=== PATIENT | male | born 2000 | race Caucasian/White ===

== ENCOUNTER 2022-04-06 22:21 | Emergency (ER) | payer OTHER ==
[~2022-04-06] VITALS: Ht 175.3 cm; Wt 86.4 kg
[2022-04-06 22:25] VITALS: TEMP 97.8
[2022-04-06 23:32] VITALS: BP 120/63; PULSE 46
== END 2022-04-06 23:36 | disposition home or self-care (01) ==
LOC: COL.ER 22:21
DX: J95.830 Postprocedural hemorrhage of a respiratory system organ or structure following a respiratory system procedure (principal)